=== PATIENT | female | born 1990 | race African-American/Black ===

== ENCOUNTER 2016-11-05 10:55 | Emergency (ER) | payer OTHER | END 2016-11-05 11:41 | disposition home or self-care (01) | LOC: BURERS 10:55 | DX: M26.622 Arthralgia of left temporomandibular joint (principal); F41.9 Anxiety disorder, unspecified; F31.9 Bipolar disorder, unspecified | CPT/HCPCS: 99282 ==

== ENCOUNTER 2016-11-09 13:51 | Outpatient (CLI) | payer OTHER ==
--- NOTE | 2016-11-09 18:51 | RAD ---
LEFT FOOT THREE VIEWS: 11/09/16 No fracture, recent or remote, was visible. All bones appeared intact. The joints appear normal. IMPRESSION: No significant finding. POS: [facility]
--- NOTE | 2016-11-09 18:52 | RAD ---
MANDIBLE FOUR VIEWS 11/09/16 No fracture or area of bony destruction was seen. There were no cystic lesions around the roots of t he teeth or elsewhere in the mandible. All structures appeared intact. IMPRESSION: No significant finding. POS: [facility]
== END 2016-11-09 13:52 | disposition home or self-care (01) ==
LOC: BURRAD 13:51
PROVIDERS: ATTEND Physician Assistant
DX: S03.4 Sprain of jaw (principal); M79.672 Pain in left foot
CPT/HCPCS: 70110

== ENCOUNTER 2016-12-27 16:29 | Outpatient (CLI) | payer OTHER ==
[2016-12-28 18:59] LABS: HIV (1/2) Antibody/Antigen Non-Reactive (NonReactive); HIV 1/2 INDEX 0.06 S/CO (<1.00)
== END 2016-12-27 16:30 | disposition home or self-care (01) ==
LOC: HPCALD 16:29
PROVIDERS: ATTEND Physician Assistant
DX: Z01.419 Encounter for gynecological examination (general) (routine) without abnormal findings (principal)
CPT/HCPCS: 36415; 86592; 87252; 87389; 87480; 87491; 87510; 87591; 87660

== ENCOUNTER 2017-06-02 07:16 | Emergency (ER) | payer OTHER ==
[2017-06-02 07:45] LABS: BHCG - Serum Negative (NEGATIVE); Pregs Control Background? CLEAR/WHITE (CLR/WHITE); Pregs Control Bar Appear? YES (CONTROL BAR)
[2017-06-02 07:53] LABS: INR-International Normal Ratio 0.9; PTT 28.8 SEC (22.9-36.1); Prothrombin Time 12.6 SEC (12.0-14.7)
[2017-06-02 07:58] LABS: D-Dimer Test Less than 0.27 *mcg/mL (0.27-0.43)
[2017-06-02 08:00] LABS: CKMB 5.2 ng/mL (0-6.6); Troponin I Less than 0.010 ng/mL (< 0.028)
[2017-06-02 08:05] LABS: Eosinophils 3 % (0-10); Hemoglobin 13.4 g/dL (12.0-16.0); Lymphocytes 41 % (21-51); MDiff Complete? YES; Mean Corpuscular HGB CONC 33.7 g/dL (32.0-36.0); Mean Corpuscular Hemoglobin 28.6 pg (27.0-31.0); Mean Platelet Volume 7.4 fL (7.4-10.4); Monocytes 13 % (0-10); Neutrophil 43 % (42-75); PLT Morphology Comment Appears Adequate; Platelet Count 279 thou/uL (130-400); RBC Distribution Width 11.5 % (11.5-14.5); RBC Morphology Normal; Red Blood Cell (RBC) Count 4.67 mill/uL (4.20-5.40); White Blood Cell (WBC) Count 5.5 thou/uL (4.8-10.8)
--- NOTE | 2017-06-02 08:25 | RAD ---
PA AND LATERAL VIEWS CHEST: HISTORY: Dyspnea. Chest pain. COMPARISON: 10/18/2004 FINDINGS: The heart size is normal. No focal areas of consolidation, pneumothorax, or pleural effusions are se en. IMPRESSION: No acute process. POS: [facility]
== END 2017-06-02 08:29 | disposition home or self-care (01) ==
LOC: BURERS 07:16
DX: M94.0 Chondrocostal junction syndrome [Tietze] (principal); J06.9 Acute upper respiratory infection, unspecified; F41.9 Anxiety disorder, unspecified; F31.9 Bipolar disorder, unspecified
CPT/HCPCS: 71020; 82553; 83605; 84484; 84703; 85025; 85379; 85610; 85730; 86140; 87804; 93005; 94760

== ENCOUNTER 2017-12-04 09:16 | Emergency (ER) | payer OTHER ==
[2017-12-04] MEDS ORDERED: Ketorolac Tromethamine 30 MG/ML VIAL ONE (09:53)
[2017-12-04 10:40] LABS: Bilirubin Negative (Negative); Blood, Urine Negative (Negative); Clarity Slightly Cloudy (Clear); Glucose, Urine (Dipstick) Negative (Negative); Leukocyte Negative (Negative); Nitrite Negative (Negative); Protein, Urine (Dipstick) Trace mg/dL (Neg-Trace)
--- NOTE | 2017-12-04 11:28 | CT ---
CT LUMBAR SPINE: Multiple axial tomograms are obtained through the lumbar spine with multiplanar reconstructions. HISTORY: Low back pain. History of injury. FINDINGS: The lumbar vertebrae maintain normal height and alignment. Disk spaces are normally maintained. The re is no evidence of spondylolisthesis or spondylolysis. At L1-2, no evidence of disk bulge. No central canal or foraminal stenosis. At L2-3, no significant disk bulge, central canal stenosis or foraminal stenosis. At L3-4, mild broad-based bulge abuts the anterior thecal sac. No significant central canal or adamaris inal stenosis. At L4-5, mild bulge abuts the anterior thecal sac. No evidence of central canal or foraminal stenosi s. At L5-S1, mild disk bulge does abut the traversing S1 nerve roots. No central canal or foraminal richard nosis. IMPRESSION: No evidence of fracture or listhesis. No evidence of disk protrusion. Mild disk bulge is seen at se veral levels as described. POS: [facility]
== END 2017-12-04 10:46 | disposition home or self-care (01) ==
LOC: BURERS 09:16
DX: M54.5 Low back pain (principal); F41.9 Anxiety disorder, unspecified; F31.9 Bipolar disorder, unspecified; F17.210 Nicotine dependence, cigarettes, uncomplicated
CPT/HCPCS: 72131; 81003; 96372; J1885; J2270

== ENCOUNTER 2018-07-04 15:19 | Emergency (ER) | payer OTHER | END 2018-07-04 15:47 | disposition home or self-care (01) | LOC: BURERS 15:19 | DX: S56.211A Strain of other flexor muscle, fascia and tendon at forearm level, right arm, initial encounter (principal); F41.9 Anxiety disorder, unspecified; F31.9 Bipolar disorder, unspecified; F17.210 Nicotine dependence, cigarettes, uncomplicated; X50.9XXA Other and unspecified overexertion or strenuous movements or postures, initial encounter | CPT/HCPCS: 99283 ==

== ENCOUNTER 2018-07-29 16:17 | Emergency (ER) | payer BC, OTHER ==
[2018-07-29] MEDS ORDERED: Dexamethasone 4 MG TAB ONE (16:58)
[2018-07-29] MEDS ORDERED: Meclizine HCl 25 MG TAB ONE (16:58)
== END 2018-07-29 17:03 | disposition home or self-care (01) ==
LOC: BURERS 16:17
DX: S54.00XA Injury of ulnar nerve at forearm level, unspecified arm, initial encounter (principal); G56.00 Carpal tunnel syndrome, unspecified upper limb; H93.11 Tinnitus, right ear; H81.11 Benign paroxysmal vertigo, right ear; F41.9 Anxiety disorder, unspecified; F31.9 Bipolar disorder, unspecified; F17.210 Nicotine dependence, cigarettes, uncomplicated; X58.XXXA Exposure to other specified factors, initial encounter
CPT/HCPCS: 99283; J8540

== ENCOUNTER 2019-01-28 14:20 | Emergency (ER) | payer BC, OTHER ==
--- NOTE | 2019-01-28 16:51 | RAD ---
RIGHT ANKLE THREE VIEWS: 01/28/19 No fracture or joint space abnormality was seen. The mortise appears intact. The articular surfaces a re smooth. IMPRESSION: No acute findings. POS: [facility]
== END 2019-01-28 15:00 | disposition home or self-care (01) ==
LOC: BURERS 14:20
DX: S93.401A Sprain of unspecified ligament of right ankle, initial encounter (principal); G43.909 Migraine, unspecified, not intractable, without status migrainosus; F41.9 Anxiety disorder, unspecified; F31.9 Bipolar disorder, unspecified; F17.210 Nicotine dependence, cigarettes, uncomplicated; X50.1XXA Overexertion from prolonged static or awkward postures, initial encounter

== ENCOUNTER 2019-02-07 14:05 | Emergency (ER) | payer BC, OTHER ==
[2019-02-07] MEDS ORDERED: Fluorescein Opthalmic Strip ONE (14:20)
[2019-02-07] MEDS ORDERED: Tetracaine 0.5% OPHTH SOLN/PF 4 ML BOT ONE (14:20)
== END 2019-02-07 14:40 | disposition home or self-care (01) ==
LOC: BURERS 14:05 → EEVIPCON 14:05 → BURERS 14:40
DX: S05.02XA Injury of conjunctiva and corneal abrasion without foreign body, left eye, initial encounter (principal); F17.210 Nicotine dependence, cigarettes, uncomplicated; G43.909 Migraine, unspecified, not intractable, without status migrainosus; W22.8XXA Striking against or struck by other objects, initial encounter
CPT/HCPCS: 99283

== ENCOUNTER 2019-04-10 20:44 | Emergency (ER) | payer BC, OTHER ==
[2019-04-10] MEDS ORDERED: Famotidine In NaCl 20 mg/50 ml Premix Bag ONE (21:01)
[2019-04-10] MEDS ORDERED: Ondansetron PF 4 MG/2 ML Vial ONE (21:01)
== END 2019-04-10 22:00 | disposition home or self-care (01) ==
LOC: BURERS 20:44
DX: J11.1 Influenza due to unidentified influenza virus with other respiratory manifestations (principal); R11.2 Nausea with vomiting, unspecified; G43.909 Migraine, unspecified, not intractable, without status migrainosus; F17.210 Nicotine dependence, cigarettes, uncomplicated
CPT/HCPCS: 96365; 96375; J2405

== ENCOUNTER 2019-08-06 09:10 | Emergency (ER) | payer BC, OTHER ==
[2019-08-06 09:37] LABS: Bilirubin Negative (Negative); Blood, Urine Negative (Negative); Clarity Slightly Cloudy (Clear); Glucose, Urine (Dipstick) Negative (Negative); Leukocyte Trace (Negative); Nitrite Negative (Negative); Protein, Urine (Dipstick) Negative (Neg-Trace); Urobilinogen 0.2 mg/dL (Less than 2)
[2019-08-06 09:43] LABS: Bacteria/HPF Rare-Few HPF (None Seen); RBC/HPF None Seen HPF (0-3); Squamous Epithelial 0-3 HPF (0-3); WBC/HPF 0-3 HPF (0-3)
[2019-08-06] MEDS ORDERED: Ketorolac Tromethamine 30 MG/ML VIAL ONE (10:14)
== END 2019-08-06 10:17 | disposition home or self-care (01) ==
LOC: BURERS 09:10
DX: M62.830 Muscle spasm of back (principal); G43.909 Migraine, unspecified, not intractable, without status migrainosus; F17.210 Nicotine dependence, cigarettes, uncomplicated
CPT/HCPCS: 81003; 81015; 96372; 99283; J1885

== ENCOUNTER 2019-12-01 09:22 | Emergency (ER) | payer OTHER ==
[2019-12-01] MEDS ORDERED: Ondansetron PF 4 MG/2 ML Vial ONE (09:50)
[2019-12-01 10:28] LABS: #Basophils 0.1 thou/uL (0.0-0.2); #Eosinphils 0.2 thou/uL (0.0-0.7); #Lymphocytes 2.4 thou/uL (1.20-3.40); #Monocytes 0.4 thou/uL (0.11-0.59); #Neutrophils 2.4 thou/uL (1.40-6.50); %Basophils 1.3 % (0.0-1.0); %Eosinophils 2.8 % (0.0-10.0); %Lymphocytes 45.1 % (21.0-51.0); %Monocytes 7.2 % (0.0-10.0); %Neutrophils 43.6 % (42.0-75.0); Hemoglobin 12.5 g/dL (12.0-16.0); Mean Corpuscular HGB CONC 29.9 g/dL (32.0-36.0); Mean Corpuscular Volume 90.3 fL (78.0-98.0); Mean Platelet Volume 8.4 fL (7.4-10.4); Platelet Count 271 thou/uL (130-400); Red Blood Cell (RBC) Count 4.62 mill/uL (4.20-5.40); White Blood Cell (WBC) Count 5.4 thou/uL (4.8-10.8)
[2019-12-01 10:36] LABS: BHCG - Serum Negative (NEGATIVE); Pregs Control Background? CLEAR/WHITE (CLR/WHITE); Pregs Control Bar Appear? YES (CONTROL BAR)
[2019-12-01 10:46] LABS: ALT (SGPT) 23 U/L (8-55); AST (SGOT) 23 U/L (5-34); Albumin 3.8 g/dL (3.5-5.0); Alkaline Phosphatase 50 U/L (40-110); Anion Gap 11 mmol/L (10-20); BUN (Urea Nitrogen) 10 mg/dL (7.0-18.7); Bilirubin, Total 0.4 mg/dL (0.2-1.2); CK (CPK) 599 U/L (29-168); Calc. Creatinine Clearance 0 mL/min (70-130); Calcium 8.6 mg/dL (7.8-10.44); Carbon Dioxide 25 mmol/L (22-29); Chloride 107 mmol/L (98-107); Estimated GFR-MDRD Greater than 90; Globulin 3.2 g/dL (2.4-3.5); Glucose 86 mg/dL (70-105); Potassium 4.1 mmol/L (3.5-5.1); Sodium 139 mmol/L (136-145)
[2019-12-01] MEDS ORDERED: Aspirin Chewable 81 MG TAB ONE (11:05)
[2019-12-01] MEDS ORDERED: Ketorolac Tromethamine 30 MG/ML VIAL ONE (11:07)
--- NOTE | 2019-12-01 14:22 | RAD ---
CHEST 2 VIEWS: Date: 12/01/2019 Comparison made with the 11/21/2019 study. FINDINGS: The cardiac size remains slightly prominent, but unchanged. There is no vascular congestion, edema, o r pleural effusion. The lungs are clear. There is no acute infiltrate. IMPRESSION: Borderline heart size, little change since 11/21/2019. POS: [facility]
[2019-12-02 12:21] LABS: SARS-CoV-2 MS2 Positive; SARS-CoV-2 N Gene Negative; SARS-CoV-2 S Gene Negative; SARS-CoV-2 orf1ab Negative
== END 2019-12-01 12:50 | disposition home or self-care (01) ==
LOC: BURERS 09:22
DX: R07.89 Other chest pain (principal); F17.210 Nicotine dependence, cigarettes, uncomplicated; Z20.828 Contact with and (suspected) exposure to other viral communicable diseases
CPT/HCPCS: 71046; 80053; 82550; 84484; 84703; 85025; 85379; 87635; 93005; 96361; 96374; 96375; J1885; J2405; U0003

== ENCOUNTER 2020-07-26 10:54 | Outpatient (CLI) | payer OTHER ==
--- NOTE | 2020-07-26 13:26 | RAD ---
RIGHT ANKLE 3 VIEWS: DATE: 07/26/2020. FINDINGS: No fracture, joint abnormality, or other bony abnormality was seen. No soft tissue calcifications we re seen. There is no calcaneal spur. The lateral view shows a marker at the site of interest. One sees the soft tissue shadow of the Achilles tendon running past this point, but with no obvious abnor mality on these plain x-rays. IMPRESSION: No significant finding. POS: [facility]
== END 2020-07-26 10:55 | disposition home or self-care (01) ==
LOC: BURRAD 10:54
PROVIDERS: ATTEND Physician Assistant
DX: M76.61 Achilles tendinitis, right leg (principal)

== ENCOUNTER 2020-08-25 10:05 | Emergency (ER) | payer OTHER ==
[2020-08-25 11:00] LABS: #Basophils 0.1 thou/uL (0.0-0.2); #Eosinphils 0.1 thou/uL (0.0-0.7); #Lymphocytes 2.1 thou/uL (1.20-3.40); #Monocytes 0.4 thou/uL (0.11-0.59); #Neutrophils 2.9 thou/uL (1.40-6.50); %Basophils 1.2 % (0.0-1.0); %Eosinophils 2.3 % (0.0-10.0); %Lymphocytes 38.1 % (21.0-51.0); %Monocytes 6.5 % (0.0-10.0); %Neutrophils 51.9 % (42.0-75.0); Hemoglobin 12.8 g/dL (12.0-16.0); Mean Corpuscular HGB CONC 32.6 g/dL (32.0-36.0); Mean Corpuscular Hemoglobin 27.8 pg (27.0-31.0); Mean Corpuscular Volume 85.3 fL (78.0-98.0); Mean Platelet Volume 8.6 fL (7.4-10.4); Platelet Count 283 thou/uL (130-400); RBC Distribution Width 11.4 % (11.5-14.5); White Blood Cell (WBC) Count 5.5 thou/uL (4.8-10.8)
[2020-08-25] MEDS ORDERED: Ketorolac Tromethamine 60 MG/2 ML VIAL ONE (11:09)
[2020-08-25 11:25] LABS: AST (SGOT) 30 U/L (5-34); Albumin 3.9 g/dL (3.5-5.0); Alkaline Phosphatase 56 U/L (40-110); Anion Gap 12 mmol/L (10-20); BUN (Urea Nitrogen) 20 mg/dL (7.0-18.7); Bilirubin, Total 0.2 mg/dL (0.2-1.2); Calc. Creatinine Clearance 0 mL/min (70-130); Calcium 9.4 mg/dL (7.8-10.44); Carbon Dioxide 27 mmol/L (22-29); Chloride 105 mmol/L (98-107); Globulin 3.5 g/dL (2.4-3.5); Glucose 89 mg/dL (70-105); Potassium 3.9 mmol/L (3.5-5.1); Protein, Total 7.4 g/dL (6.0-8.3); Sodium 140 mmol/L (136-145)
[2020-08-25 11:41] LABS: ALT (SGPT) 30 U/L (8-55)
== END 2020-08-25 11:16 | disposition home or self-care (01) ==
LOC: BURERS 10:05
DX: R51.9 Headache, unspecified (principal); I10 Essential (primary) hypertension; F17.210 Nicotine dependence, cigarettes, uncomplicated; Z79.899 Other long term (current) drug therapy
CPT/HCPCS: 36415; 70450; 80053; 85025; 96372; J1885

== ENCOUNTER 2021-05-30 12:41 | Emergency (ER) | payer OTHER ==
[2021-05-30 22:28] LABS: SARS-CoV-2 PCR by NAA Not Detected (NotDetected)
== END 2021-05-30 13:12 | disposition home or self-care (01) ==
LOC: BURERS 12:41
DX: B34.9 Viral infection, unspecified (principal); J02.9 Acute pharyngitis, unspecified; Z20.822 Contact with and (suspected) exposure to COVID-19; F17.210 Nicotine dependence, cigarettes, uncomplicated
CPT/HCPCS: 87804; 99283; U0003; U0005

== ENCOUNTER 2022-03-01 08:04 | Emergency (ER) | payer BC, OTHER ==
[2022-03-01 08:56] LABS: #Basophils 0.1 thou/uL (0.0-0.2); #Eosinphils 0.1 thou/uL (0.0-0.7); #Lymphocytes 2.6 thou/uL (1.20-3.40); #Monocytes 0.4 thou/uL (0.11-0.59); #Neutrophils 2.1 thou/uL (1.40-6.50); %Eosinophils 2.6 % (0.0-10.0); %Lymphocytes 49.8 % (21.0-51.0); %Monocytes 7.3 % (0.0-10.0); %Neutrophils 39.4 % (42.0-75.0); Hemoglobin 13.1 g/dL (12.0-16.0); Mean Corpuscular Hemoglobin 27.8 pg (27.0-31.0); Mean Corpuscular Volume 84.3 fL (78.0-98.0); Mean Platelet Volume 7.5 fL (7.4-10.4); Platelet Count 302 thou/uL (130-400); RBC Distribution Width 12.2 % (11.5-14.5); Red Blood Cell (RBC) Count 4.71 mill/uL (4.20-5.40); White Blood Cell (WBC) Count 5.3 thou/uL (4.8-10.8)
[2022-03-01] MEDS ORDERED: Dexamethasone 4 MG TAB ONE (09:02)
[2022-03-01] MEDS ORDERED: Metoclopramide HCl 10 MG/2 ML VIAL ONE (09:02)
[2022-03-01] MEDS ORDERED: diphenhydrAMINE 50 MG/ML VIAL ONE (09:02)
[2022-03-01 09:10] LABS: Prothrombin Time 12.8 sec (12.0-14.7)
[2022-03-01 09:11] LABS: PTT 29.1 sec (22.9-36.1)
[2022-03-01 09:15] LABS: ALT (SGPT) 29 U/L (8-55); AST (SGOT) 27 U/L (5-34); Albumin 3.8 g/dL (3.5-5.0); Alkaline Phosphatase 56 U/L (40-110); Anion Gap 12 mmol/L (10-20); BUN (Urea Nitrogen) 10 mg/dL (7.0-18.7); Bilirubin, Total 0.2 mg/dL (0.2-1.2); Calc. Creatinine Clearance 0 mL/min (70-130); Calcium 8.8 mg/dL (7.8-10.44); Carbon Dioxide 25 mmol/L (22-29); Chloride 108 mmol/L (98-107); Estimated GFR 99; Globulin 3.1 g/dL (2.4-3.5); Glucose 91 mg/dL (70-105); Potassium 3.9 mmol/L (3.5-5.1); Protein, Total 6.9 g/dL (6.0-8.3); Sodium 141 mmol/L (136-145)
== END 2022-03-01 10:24 | disposition home or self-care (01) ==
LOC: BURERS 08:04
DX: R51.9 Headache, unspecified (principal); I10 Essential (primary) hypertension
CPT/HCPCS: 36415; 70450; 80053; 85025; 85610; 85730; 96374; 96375; J1200; J2765; J8540

== ENCOUNTER 2022-04-16 14:49 | Emergency (ER) | payer BC, OTHER | END 2022-04-16 15:27 | disposition home or self-care (01) | LOC: BURERS 14:49 | DX: R19.7 Diarrhea, unspecified (principal); L29.3 Anogenital pruritus, unspecified; I10 Essential (primary) hypertension | CPT/HCPCS: 99283 ==

== ENCOUNTER 2022-06-23 05:21 | Emergency (ER) | payer BC, OTHER ==
[2022-06-23] MEDS ORDERED: Fentanyl 100 MCG/2 ML VIAL ONE (05:53)
[2022-06-23] MEDS ORDERED: Ondansetron PF 4 MG/2 ML Vial ONE (05:53)
[2022-06-23 06:07] LABS: Bilirubin Negative (Negative); Blood, Urine Negative (Negative); Clarity Clear (Clear); Glucose, Urine (Dipstick) Negative (Negative); Ketone, Urine Negative (Negative); Leukocyte Negative (Negative); Nitrite Negative (Negative); Protein, Urine (Dipstick) Negative (Neg-Trace); Urobilinogen 0.2 mg/dL (Less than 2); pH, Urine 6.5 (5.0-9.0)
[2022-06-23 06:22] LABS: #Basophils 0.1 thou/uL (0.0-0.2); #Lymphocytes 1.2 thou/uL (1.20-3.40); #Monocytes 0.6 thou/uL (0.11-0.59); #Neutrophils 6.4 thou/uL (1.40-6.50); %Basophils 0.7 % (0.0-1.0); %Eosinophils 0.6 % (0.0-10.0); %Lymphocytes 14.8 % (21.0-51.0); %Monocytes 6.9 % (0.0-10.0); Hemoglobin 12.3 g/dL (12.0-16.0); Mean Corpuscular HGB CONC 33.4 g/dL (32.0-36.0); Mean Corpuscular Volume 83.8 fl (78.0-98.0); Mean Platelet Volume 7.6 fL (7.4-10.4); Platelet Count 286 10x3/uL (130-400); RBC Distribution Width 11.6 % (11.5-14.5); Red Blood Cell (RBC) Count 4.41 mill/uL (4.20-5.40); White Blood Cell (WBC) Count 8.4 10x3/uL (4.8-10.8)
[2022-06-23 06:42] LABS: ALT (SGPT) 23 U/L (8-55); AST (SGOT) 19 U/L (5-34); Albumin 3.7 g/dL (3.5-5.0); Alkaline Phosphatase 57 U/L (40-110); Anion Gap 14 mmol/L (10-20); BUN (Urea Nitrogen) 10 mg/dL (7.0-18.7); Bilirubin, Total 0.2 mg/dL (0.2-1.2); Calc. Creatinine Clearance 0 mL/min (70-130); Calcium 8.5 mg/dL (7.8-10.44); Carbon Dioxide 21 mmol/L (22-29); Chloride 107 mmol/L (98-107); Estimated GFR 97; Glucose 99 mg/dL (70-105); Potassium 3.9 mmol/L (3.5-5.1); Protein, Total 6.7 g/dL (6.0-8.3); Sodium 138 mmol/L (136-145)
[2022-06-23] MEDS ORDERED: Dicyclomine 20 MG TAB ONE (07:17)
[2022-06-23] MEDS ORDERED: Iopamidol 370 76% 100 ML VIAL ONE (15:19)
== END 2022-06-23 08:19 | disposition home or self-care (01) ==
LOC: BURERS 05:21
DX: K52.9 Noninfective gastroenteritis and colitis, unspecified (principal); I10 Essential (primary) hypertension
CPT/HCPCS: 36415; 74177; 80053; 81003; 83605; 85025; 96361; 96374; 96375; J2405; J3010; Q9967

== ENCOUNTER 2022-08-21 15:34 | Outpatient (CLI) | payer BC, OTHER | END 2022-08-21 15:35 | disposition home or self-care (01) | LOC: BURRAD 15:34 | PROVIDERS: ATTEND Family Medicine | DX: S00.12XA Contusion of left eyelid and periocular area, initial encounter (principal) | CPT/HCPCS: 70260 ==

== ENCOUNTER 2022-10-11 10:07 | Emergency (ER) | payer BC, OTHER ==
[2022-10-11] MEDS ORDERED: Ondansetron ODT 4 MG TAB ONE (10:33)
== END 2022-10-11 11:25 | disposition home or self-care (01) ==
LOC: BURERS 10:07
DX: B34.9 Viral infection, unspecified (principal); I10 Essential (primary) hypertension
CPT/HCPCS: 87804; 99283; Q0162

== ENCOUNTER 2023-05-22 21:54 | Emergency (ER) | payer OTHER, BC ==
[2023-05-22] MEDS ORDERED: Ibuprofen 800 MG TAB ONE (22:24)
== END 2023-05-22 23:17 | disposition home or self-care (01) ==
LOC: BURERS 21:54
DX: B34.9 Viral infection, unspecified (principal); I10 Essential (primary) hypertension
CPT/HCPCS: 87081; 87430; 87804; 99283

== ENCOUNTER 2023-07-04 23:25 | Outpatient (CLI) | payer OTHER, BC ==
[2023-07-04 23:38] LABS: #Basophils 0.1 thou/uL (0.0-0.2); #Eosinphils 0.1 thou/uL (0.0-0.7); #Lymphocytes 3.2 thou/uL (1.20-3.40); #Monocytes 0.7 thou/uL (0.11-0.59); #Neutrophils 3.1 thou/uL (1.40-6.50); %Basophils 0.8 % (0.0-1.0); %Eosinophils 1.4 % (0.0-10.0); %Lymphocytes 45.2 % (21.0-51.0); %Monocytes 9.1 % (0.0-10.0); %Neutrophils 43.6 % (42.0-75.0); Hemoglobin 11.5 g/dL (12.0-16.0); Mean Corpuscular HGB CONC 31.9 g/dL (32.0-36.0); Mean Corpuscular Hemoglobin 26.8 pg (27.0-31.0); Mean Platelet Volume 7.7 fL (7.4-10.4); Platelet Count 287 10x3/uL (130-400); RBC Distribution Width 11.5 % (11.5-14.5); Red Blood Cell (RBC) Count 4.28 mill/uL (4.20-5.40); White Blood Cell (WBC) Count 7.2 10x3/uL (4.8-10.8)
[2023-07-04 23:58] LABS: ALT (SGPT) 30 U/L (8-55); AST (SGOT) 30 U/L (5-34); Albumin 3.7 g/dL (3.5-5.0); Alkaline Phosphatase 54 U/L (40-110); Anion Gap 13 mmol/L (10-20); BUN (Urea Nitrogen) 15 mg/dL (7.0-18.7); Bilirubin, Total 0.2 mg/dL (0.2-1.2); Calc. Creatinine Clearance 0 mL/min (70-130); Calcium 8.6 mg/dL (7.8-10.44); Carbon Dioxide 22 mmol/L (22-29); Chloride 109 mmol/L (98-107); Estimated GFR 98; Globulin 3.2 g/dL (2.4-3.5); Glucose 90 mg/dL (70-105); Potassium 3.6 mmol/L (3.5-5.1); Protein, Total 6.9 g/dL (6.0-8.3); Sodium 140 mmol/L (136-145)
== END 2023-07-04 23:26 | disposition home or self-care (01) ==
LOC: BURLABSP 23:25
PROVIDERS: ATTEND Family Medicine
DX: Z00.00 Encounter for general adult medical examination without abnormal findings (principal)
CPT/HCPCS: 36415; 80053; 85025

== ENCOUNTER 2023-07-27 22:42 | Emergency (ER) | payer OTHER, BC ==
[2023-07-27] MEDS ORDERED: Morphine 4 MG/ML VIAL ONE (23:09)
[2023-07-27] MEDS ORDERED: Ketorolac Tromethamine 30 MG (1 mL) VIAL ONE (23:09)
[2023-07-27] MEDS ORDERED: Morphine 2 MG/ML VIAL ONE (23:10)
[2023-07-27] MEDS ORDERED: predniSONE 20 MG TAB ONE (23:10)
[2023-07-27 23:15] LABS: #Basophils 0.1 thou/uL (0.0-0.2); #Eosinphils 0.1 thou/uL (0.0-0.7); #Lymphocytes 3.3 thou/uL (1.20-3.40); #Monocytes 0.5 thou/uL (0.11-0.59); #Neutrophils 3.2 thou/uL (1.40-6.50); %Eosinophils 1.6 % (0.0-10.0); %Lymphocytes 45.9 % (21.0-51.0); %Monocytes 6.9 % (0.0-10.0); %Neutrophils 44.6 % (42.0-75.0); Hematocrit 38.1 % (36.0-47.0); Hemoglobin 12.7 g/dL (12.0-16.0); Mean Corpuscular HGB CONC 33.4 g/dL (32.0-36.0); Mean Corpuscular Hemoglobin 27.4 pg (27.0-31.0); Mean Corpuscular Volume 82.1 fl (78.0-98.0); Mean Platelet Volume 7.2 fL (7.4-10.4); Platelet Count 334 10x3/uL (130-400); RBC Distribution Width 11.3 % (11.5-14.5); Red Blood Cell (RBC) Count 4.64 mill/uL (4.20-5.40); White Blood Cell (WBC) Count 7.2 10x3/uL (4.8-10.8)
[2023-07-27 23:30] LABS: BHCG - Serum Negative (NEGATIVE); INR-International Normal Ratio 0.9; Pregs Control Background? CLEAR/WHITE (CLR/WHITE); Pregs Control Bar Appear? YES (CONTROL BAR); Prothrombin Time 12.5 sec (12.0-14.7)
[2023-07-27 23:39] LABS: ALT (SGPT) 30 U/L (8-55); AST (SGOT) 25 U/L (5-34); Alkaline Phosphatase 58 U/L (40-110); Anion Gap 13 mmol/L (10-20); BUN (Urea Nitrogen) 20 mg/dL (7.0-18.7); Bilirubin, Total 0.3 mg/dL (0.2-1.2); Calc. Creatinine Clearance 0 mL/min (70-130); Calcium 9.2 mg/dL (7.8-10.44); Carbon Dioxide 21 mmol/L (22-29); Chloride 108 mmol/L (98-107); Estimated GFR 70; Globulin 3.6 g/dL (2.4-3.5); Glucose 94 mg/dL (70-105); Potassium 4.3 mmol/L (3.5-5.1); Protein, Total 7.6 g/dL (6.0-8.3); Sodium 138 mmol/L (136-145)
[2023-07-28] MEDS ORDERED: HYDROcodone/Acetaminophen 5/325 mg Tablet ONE (00:07)
== END 2023-07-28 00:21 | disposition home or self-care (01) ==
LOC: BURERS 22:42
DX: M54.50 Low back pain, unspecified (principal); V89.2XXA Person injured in unspecified motor-vehicle accident, traffic, initial encounter
CPT/HCPCS: 36415; 74176; 80053; 84703; 85025; 85610; 96372; J1885; J2270; J2272; J7512

== ENCOUNTER 2024-02-14 21:46 | Emergency (ER) | payer BC, OTHER ==
[2024-02-14] MEDS ORDERED: Ketorolac Tromethamine 30 MG (1 mL) VIAL ONE (22:26)
[2024-02-14] MEDS ORDERED: Prochlorperazine 10 MG/2 ML VIAL ONE (22:26)
== END 2024-02-14 23:30 | disposition home or self-care (01) ==
LOC: BURERS 21:46
DX: R51.9 Headache, unspecified (principal); I10 Essential (primary) hypertension; Z79.899 Other long term (current) drug therapy
CPT/HCPCS: 96374; 96375; J0780; J1885

== ENCOUNTER 2024-07-03 16:05 | Emergency (ER) | payer BC, OTHER ==
[2024-07-03 16:32] LABS: #Basophils 0.1 thou/uL (0.0-0.2); #Eosinophils 0.1 thou/uL (0.0-0.7); #Lymphocytes 2.7 thou/uL (1.20-3.40); #Monocytes 0.6 thou/uL (0.11-0.59); #Neutrophils 2.5 thou/uL (1.40-6.50); %Basophils 0.8 % (0.0-1.0); %Eosinophils 1.7 % (0.0-10.0); %Lymphocytes 44.7 % (21.0-51.0); %Monocytes 10.6 % (0.0-10.0); %Neutrophils 42.2 % (42.0-75.0); Hematocrit 37.8 % (36.0-47.0); Hemoglobin 12.6 g/dL (12.0-16.0); Mean Corpuscular HGB CONC 33.5 g/dL (32.0-36.0); Mean Corpuscular Volume 80.7 fl (78.0-98.0); Mean Platelet Volume 7.4 fL (7.4-10.4); Platelet Count 321 10x3/uL (130-400); RBC Distribution Width 10.6 % (11.5-14.5); Red Blood Cell (RBC) Count 4.68 mill/uL (4.20-5.40); White Blood Cell (WBC) Count 5.9 10x3/uL (4.8-10.8)
[2024-07-03 16:48] LABS: BHCG - Serum Negative (NEGATIVE); Pregs Control Background? CLEAR/WHITE (CLR/WHITE); Pregs Control Bar Appear? YES (CONTROL BAR)
[2024-07-03 16:49] LABS: ALT (SGPT) 25 U/L (Less than 34); AST (SGOT) 27 U/L (11-34); Albumin 3.9 g/dL (3.1-4.5); Alkaline Phosphatase 59 U/L (40-110); Anion Gap 12 mmol/L (10-20); BUN (Urea Nitrogen) 11 mg/dL (7.0-18.7); Bilirubin, Total 0.4 mg/dL (0.3-1.2); Calc. Creatinine Clearance 0 mL/min (70-130); Calcium 9.3 mg/dL (7.8-10.44); Carbon Dioxide 23 mmol/L (22-29); Chloride 108 mmol/L (98-107); Estimated GFR 93; Globulin 3.6 g/dL (2.4-3.5); Glucose 75 mg/dL (70-105); Potassium 3.8 mmol/L (3.5-5.1); Protein, Total 7.5 g/dL (6.0-8.3); Sodium 139 mmol/L (136-145)
== END 2024-07-03 17:09 | disposition home or self-care (01) ==
LOC: BURERS 16:05
DX: F43.0 Acute stress reaction (principal); R29.701 NIHSS score 1; I10 Essential (primary) hypertension; Z79.899 Other long term (current) drug therapy
CPT/HCPCS: 36415; 70450; 80053; 84703; 85025

== ENCOUNTER 2025-02-14 21:07 | Emergency (ER) | payer BC, OTHER | END 2025-02-14 21:32 | disposition home or self-care (01) | LOC: BURERS 21:07 | DX: M79.651 Pain in right thigh (principal); I10 Essential (primary) hypertension; F17.210 Nicotine dependence, cigarettes, uncomplicated; X50.0XXA Overexertion from strenuous movement or load, initial encounter | CPT/HCPCS: 99283 ==